=== PATIENT | female | born 1980 | race Caucasian/White ===

== ENCOUNTER 2017-12-06 21:43 | Emergency (ER) | payer BC ==
--- NOTE | 2017-12-07 00:36 | EDM.PDOC ---
ED HPI GENERAL MEDICAL PROBLEM - General Chief Complaint: Respiratory Problem Stated Complaint: COUGH Time Seen by Provider: 12/06/17 23:00 Source of Information: Reports: Patient History Limitations: Reports: No Limitations - History of Present Illness INITIAL COMMENTS - FREE TEXT/NARRATIVE: The patient states that she has had a dry cough, leading to chest soreness, chills without fever, a headache, sore throat, and rhinorrhea since , . She has had slight nausea, but no emesis, constipation, diarrhea, or urinary symptoms. She has tried gargling with salt water, and taken TheraFlu, with no relief of symptoms. No medical evaluation for these symptoms prior to tonight. The patient does not have a PCP. Treatments COMPLIANCE ENGINEER: Reports: Other (see below) Other Treatments COMPLIANCE ENGINEER: thera flu and warm salt water Headache Pain Score (Numeric/FACES): 7 - Related Data Allergies Allergy/AdvReac Type Severity Reaction Status Date / Time No Known Allergies Allergy Verified 12/06/17 22:02 Home Meds: Home Meds . 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 ED EXAM, GENERAL - Physical Exam Exam: See Below Exam Limited By: No Limitations General Appearance: Alert, WD/WN, No Apparent Distress Eye Exam: Bilateral Eye: Normal Inspection Ears: Normal External Exam, Normal Canal, Hearing Grossly Normal, Normal TMs Nose: Normal Inspection, Normal Mucosa, No Blood Throat/Mouth: Normal Inspection, Normal Lips, Normal Teeth, Normal Gums, Normal Voice, No Airway Compromise, Other (Uvula surgically absent. Mild pharyngeal erythema. No tonsillar swelling.) Head: Atraumatic, Normocephalic Neck: Normal Inspection, Supple, Non-Tender, Full Range of Motion. No: Lymphadenopathy (L), Lymphadenopathy (R) Respiratory/Chest: No Respiratory Distress, Lungs Clear, Normal Breath Sounds, No Accessory Muscle Use Cardiovascular: Normal Peripheral Pulses, Regular Rate, Rhythm, No Edema, No Gallop, No JVD, No Murmur, No Rub Peripheral Pulses: 4+: Radial (L), Radial (R) GI/Abdominal: Normal Bowel Sounds, Soft, Non-Tender, No Organomegaly, No Distention, No Abnormal Bruit, No Mass, Other (Obese) (Female) Exam: Deferred Rectal (Female) Exam: Deferred Back Exam: Normal Inspection, Full Range of Motion, NT Extremities: Normal Inspection, Normal Range of Motion, No Pedal Edema, Normal Capillary Refill Neurological: Alert, Oriented, Normal Cognition, No Motor/Sensory Deficits Psychiatric: Normal Affect Skin Exam: Warm, Dry, Intact, Normal Color, No Rash Course - Vital Signs Last Recorded V/S: Last Vital Signs Temp 36.3 C 12/06/17 21:58 Pulse 91 12/06/17 21:58 Resp 20 12/06/17 21:58 BP 121/78 12/06/17 21:58 Pulse Ox 100 12/06/17 21:58 - Orders/Labs/Meds Orders: Active Orders 24 hr Category Date Time Status CULTURE STREP A CONFIRMATION [] Stat Lab 12/06/17 23:06 Results STREP SCRN A RAPID W CULT CONF [] Stat Lab 12/06/17 23:06 Results - Re-Assessments/Exams Free Text/Narrative Re-Assessment/Exam: 12/07/17 00:39 Test results discussed with the patient. Her rapid strep test is negative. Based on her history and physical examination, she is most likely suffering from a viral URI with cough. Treatment options were discussed. Departure - Departure Time of Disposition: 00:39 Disposition: Home, Self-Care 01 Condition: Good Clinical Impression: Viral URI with cough - Discharge Information Instructions: Upper Respiratory Infection, Adult, [id number] Referrals: PCP,None [Primary Care Provider] - Judith Colmenares MD [Physician] - Forms: ED Department Discharge Additional Instructions: You were seen in the emergency room for a dry cough with sore chest, chills, headache, sore throat, and runny nose. Workup in the ER included a rapid strep test, which returned negative. You do not have strep throat. Based on your history and physical examination, you MOST LIKELY have a viral URI with cough. Unfortunately, there are no medicines to get rid of a viral URI - it will have to run its course. As discussed, we do not recommend that you take any [id number] cough or cold remedies - they do not work, but do have side effects. For your sore throat, we recommend warm saltwater gargles, Chloraseptic spray, Tylenol, or ibuprofen. Follow-up with Dr. Judith Colmenares in the clinic if your symptoms persist. If any other problems, please do not hesitate to return to the ER. - My Orders Last 24 Hours: My Active Orders 12/06/17 23:06 CULTURE STREP A CONFIRMATION [RM] Stat STREP SCRN A RAPID W CULT CONF [RM] Stat - Assessment/Plan Last 24 Hours: My Active Orders 12/06/17 23:06 CULTURE STREP A CONFIRMATION [RM] Stat STREP SCRN A RAPID W CULT CONF [RM] Stat
== END 2017-12-07 00:45 | disposition home or self-care (01) ==
LOC: JD.ED 21:43
DX: J06.9 Acute upper respiratory infection, unspecified (principal); E66.9 Obesity, unspecified
CPT/HCPCS: 87081; 87430; 99283